=== PATIENT | female | born 1990 | race Caucasian/White ===

== ENCOUNTER 2016-10-23 20:07 | Emergency (ER) | payer OTHER ==
[~2016-10-23 20:07] MED LIST: AUGMENTIN 875-1 EACH PO; ENDOCET 5-3251 EACH PO; IBUPROFEN400 MG PO; LISINOPRIL20 MG PO; TYLENOL325 M1 PO
== END 2016-10-23 21:15 | disposition home or self-care (01) ==
LOC: ER 20:07
DX: R51 Headache (principal); H66.92 Otitis media, unspecified, left ear; J32.9 Chronic sinusitis, unspecified; J02.9 Acute pharyngitis, unspecified; R50.9 Fever, unspecified; R11.0 Nausea; Z79.899 Other long term (current) drug therapy
CPT/HCPCS: 96372; 99283-25; J2270; J8597

== ENCOUNTER 2016-11-20 13:04 | Emergency (ER) | payer OTHER ==
[2016-11-20 13:51] LABS: BASO % 0.4 % (0.1-1.2); EOS # 0.2 10_X3_uL (0.0-0.4); GRAN # 6.3 10_X3_uL (1.6-6.1); GRAN % 64.9 % (34.0-71.1); HEMATOCRIT 37.6 % (34-45); HEMOGLOBIN 12.8 g/dL (11.2-15.7); LYMPH # 2.6 10_X3_uL (1.2-3.7); MEAN CORPUSCULAR HEMOGLOBIN 28.6 pg (27.0-33.0); MEAN CORPUSCULAR VOLUME 84.1 fL (79-95); MEAN PLATELET VOLUME 10.3 fl (7.5-11.5); MONO # 0.6 10_X3_uL (0.2-0.9); MONO % 5.7 % (4.7-12.5); PLATELET COUNT 370 x10_3/uL (182-369); RED BLOOD COUNT 4.47 x10_6/uL (3.9-5.2); WHITE BLOOD COUNT 9.7 x10_3/uL (4.0-10.0)
== END 2016-11-20 15:12 | disposition home or self-care (01) ==
LOC: ER 13:04
PROVIDERS: Family Medicine
DX: J40 Bronchitis, not specified as acute or chronic (principal); R05 Cough; I10 Essential (primary) hypertension; Z90.49 Acquired absence of other specified parts of digestive tract; Z98.890 Other specified postprocedural states; Z91.041 Radiographic dye allergy status; Z79.899 Other long term (current) drug therapy
CPT/HCPCS: 36415; 71020; 85025; 99283